=== PATIENT | female | born 1945 | race Caucasian/White ===

== ENCOUNTER 2021-12-26 08:59 | Outpatient (CLI) | payer OTHER, SELFPAY ==
[2021-12-26 10:58] VITALS: BMI 42.5
== END 2021-12-26 09:00 | disposition home or self-care (01) ==
PROVIDERS: PCP Nurse Practitioner Family; Visit Provider Nurse Practitioner Family
DX: E66.9 Obesity, unspecified (principal); N28.9 Disorder of kidney and ureter, unspecified; Z87.898 Personal history of other specified conditions
CPT/HCPCS: 99211

== ENCOUNTER 2022-01-09 08:29 | Outpatient (CLI) | payer OTHER, SELFPAY ==
[2022-01-09 11:37] VITALS: BMI 41.3
== END 2022-01-09 08:30 | disposition home or self-care (01) ==
PROVIDERS: PCP Nurse Practitioner Family; Referring Provider Nurse Practitioner Family; Visit Provider Nurse Practitioner Family
DX: E66.9 Obesity, unspecified (principal); N28.9 Disorder of kidney and ureter, unspecified; Z87.898 Personal history of other specified conditions; Z71.3 Dietary counseling and surveillance
CPT/HCPCS: 99211

== ENCOUNTER 2022-01-25 08:22 | Outpatient (CLI) | payer OTHER, SELFPAY ==
[2022-01-25 09:24] VITALS: BMI 40.8
== END 2022-01-25 08:23 | disposition home or self-care (01) ==
PROVIDERS: PCP Nurse Practitioner Family; Visit Provider Nurse Practitioner Family
DX: N28.9 Disorder of kidney and ureter, unspecified (principal); Z87.898 Personal history of other specified conditions; Z68.41 Body mass index [BMI] 40.0-44.9, adult; Z71.3 Dietary counseling and surveillance
CPT/HCPCS: 99211

== ENCOUNTER 2022-02-16 08:49 | Outpatient (CLI) | payer OTHER, SELFPAY ==
[2022-02-16 11:00] VITALS: BMI 40.4
== END 2022-02-16 08:50 | disposition home or self-care (01) ==
LOC: NUTRITION 08:50
PROVIDERS: PCP Nurse Practitioner Family; Visit Provider Nurse Practitioner Family
DX: Z71.3 Dietary counseling and surveillance (principal); N28.9 Disorder of kidney and ureter, unspecified; R73.03 Prediabetes; Z68.41 Body mass index [BMI] 40.0-44.9, adult; E66.9 Obesity, unspecified
CPT/HCPCS: 99211

== ENCOUNTER 2023-07-09 09:45 | Outpatient (CLI) | payer OTHER, SELFPAY | END 2023-07-09 09:46 | disposition home or self-care (01) | PROVIDERS: PCP Nurse Practitioner Family; Visit Provider Family Medicine | DX: M54.16 Radiculopathy, lumbar region (principal); M51.36 Other intervertebral disc degeneration, lumbar region | CPT/HCPCS: 62323; J0702; Q9966 ==